=== PATIENT | male | born 1980 | race Hispanic/Latino ===

== ENCOUNTER 2017-06-21 11:54 | Emergency (ER) | payer MEDICARE ==
--- NOTE | 2017-06-21 16:28 | Emergency Department Report ---
ED Male HPI - General Chief complaint: Skin Rash Stated complaint: CYST/POSS FUNGAL INFECTION Time Seen by Provider: 06/21/17 16:03 Source: patient Mode of arrival: Ambulatory Limitations: No Limitations - History of Present Illness Initial comments: 36-year-old male past medical history diverticulitis, schizoaffective disorder presents with complaint of 3 weeks of lesion and right inner groin region with weeping skin as well as slight discomfort right testicle. Denies increased urinary frequency dysuria or flank pain. Denies fevers or chills. Denies abdominal pain. Denies any difficulty urinating. Denies foul-smelling urine. Patient states he is not currently sexually active in 6+ months MD Complaint: groin pain, other Location: right testicle Radiation: none Severity: mild Severity scale (0 -10): 4 Quality: dull Consistency: intermittent discharge - Related Data Previous Rx's Medication Instructions Recorded Last Taken Type Cephalexin [Keflex] 500 mg PO Q12HR #14 cap 06/21/17 Unknown Rx Ibuprofen [Motrin] 800 mg PO Q8HR PRN #30 tablet 06/21/17 Unknown Rx Sulfamethoxazole/Trimethoprim 1 each PO BID #14 tablet 06/21/17 Unknown Rx [Bactrim Ds Tablet] Allergies Allergy/AdvReac Type Severity Reaction Status Date / Time No Known Allergies Allergy Unverified 06/21/17 12:00 ED Review of Systems ROS: Stated complaint: CYST/POSS FUNGAL INFECTION Other details as noted in HPI Constitutional: denies: chills, fever Eyes: denies: eye pain, eye discharge, vision change ENT: denies: ear pain, throat pain Respiratory: denies: cough, shortness of breath, wheezing Cardiovascular: denies: chest pain, palpitations Endocrine: no symptoms reported Gastrointestinal: denies: abdominal pain, nausea, diarrhea Genitourinary: as per HPI (3 weeks of discomfort near his scrotum). denies: urgency, dysuria Musculoskeletal: denies: back pain, joint swelling, arthralgia Skin: denies: rash, lesions Neurological: denies: headache, weakness, paresthesias Psychiatric: denies: anxiety, depression Hematological/Lymphatic: denies: easy bleeding, easy bruising ED Past Medical Hx - Past Medical History Hx Psychiatric Treatment: Yes (schzio affect disorder) Additional medical history: diverticulitis - Surgical History Additional Surgical History: heel repair, tonselectomy - Social History Smoking Status: Current Every Day Smoker - Medications Home Medications: Home Medications Medication Instructions Recorded Confirmed Last Taken Type Cephalexin [Keflex] 500 mg PO Q12HR #14 cap 06/21/17 Unknown Rx Ibuprofen [Motrin] 800 mg PO Q8HR PRN #30 tablet 06/21/17 Unknown Rx Sulfamethoxazole/Trimethoprim 1 each PO BID #14 tablet 06/21/17 Unknown Rx [Bactrim Ds Tablet] ED Physical Exam - General Limitations: No Limitations General appearance: alert, in no apparent distress - Head Head exam: Present: atraumatic, normocephalic - Eye Eye exam: Present: normal appearance, PERRL, EOMI - ENT ENT exam: Present: mucous membranes moist - Neck Neck exam: Present: normal inspection - Respiratory Respiratory exam: Present: normal lung sounds bilaterally. Absent: respiratory distress - Cardiovascular Cardiovascular Exam: Present: regular rate, normal rhythm. Absent: systolic murmur, diastolic murmur, rubs, gallop - GI/Abdominal GI/Abdominal exam: Present: soft, normal bowel sounds - Rectal Rectal exam: Present: deferred - exam: Present: normal inspection, other (small less than 1 cm palbale cystic structure adjacent to groin, no fluctuance, jefferson amoutn of drianage, no crepis in perineal region one xam, no clinical signs of fourneires gangrene) - Extremities Exam Extremities exam: Present: normal inspection - Back Exam Back exam: Present: normal inspection - Neurological Exam Neurological exam: Present: alert, oriented X3 - Psychiatric Psychiatric exam: Present: normal affect, normal mood - Skin Skin exam: Present: warm, dry, intact, normal color. Absent: rash ED Course Vital Signs 06/21/17 12:00 Temperature 98 F Pulse Rate 107 H Respiratory 18 Rate Blood Pressure 143/89 O2 Sat by Pulse 99 Oximetry ED Medical Decision Making - Medical Decision Making A/P: Tinea cruris, small draining groin cyst/abscess 1-on physical exam no clinical signs indicative of large groin abscess and or Conor's gangrene. Cystic structure is less than 1 cm in size and draining. Urinalysis unremarkable. Ultrasound is unremarkable no significant groin abscess or cyst. Will treat based on clinical symptoms 2-Keflex and Bactrim twice a day 7 days. Motrin when necessary 3-Tinactin antifungal spray 4-sits baths 5-follow up with primary care doctor Critical care attestation.: If time is entered above; I have spent that time in minutes in the direct care of this critically ill patient, excluding procedure time. ED Disposition Clinical Impression: Tinea cruris, Groin cyst Disposition: TO HOME OR SELFCARE Is pt being admited?: No Does the pt Need Aspirin: No Condition: Stable Instructions: Jock Itch (ED), Abscess (ED), Sitz Bath (GEN) Prescriptions: Cephalexin [Keflex] 500 mg PO Q12HR #14 cap Ibuprofen [Motrin] 800 mg PO Q8HR PRN #30 tablet PRN Reason: Pain Sulfamethoxazole/Trimethoprim [Bactrim Ds Tablet] 1 each PO BID #14 tablet Referrals: [facility] [place] [Outside] - 3-5 Days [facility] [Outside] - 3-5 Days Forms: Accompanied Note, Work/School Release Form(ED) Time of Disposition: 18:40
[2017-06-21 16:57] LABS: Bilirubin,Urine NEG (Negative); Blood,Urine NEG (Negative); Ketones,Urine NEG (Negative); Leukocyte Esterase,Urine NEG (Negative); Mucus,Urine FEW /HPF; Nitrite,Urine NEG (Negative); Protein,Urine <15 mg/dL mg/dL (Negative)
--- NOTE | 2017-06-21 18:21 | Ultrasound Report ---
FINAL REPORT PROCEDURE: US TESTICULAR DOPPLER COMP TECHNIQUE: Real-time brush-scale and color flow Doppler sonography in multiple planes of the scrotum, testicles, and epididymes was performed. Velocity spectral waveform analysis Doppler imaging of the arterial inflow and venous outflow of the testicles was performed with image documentation. CPT 25884 [place] [address]86 HISTORY: pain underneath right scrotum COMPARISON: No prior studies are available for comparison. FINDINGS: RIGHT TESTICLE: Size: 4.5 x 1.3 x 3.1 cm . Appearance: There is a 5 x 4 x 4 millimeter hypoechoic focus in the superior testis. Numerous diffuse punctate calculi are present. Arterial blood flow: Normal spectral waveforms, flow velocities and color flow images.. Venous blood flow: Normal spectral waveforms and color flow images. Right epididymis: Normal size and echotexture . Hydrocele: None . Front End Assistant reports that no focal lesion is seen in the area of concern indicated by the patient during the scan. LEFT TESTICLE Size: 3.5 x 1.9 x 3.4 cm . Appearance: Numerous diffuse punctate calculi are present. There is a 1 centimeter extratesticular cystic structure present in the left scrotum. Arterial blood flow: Normal spectral waveforms, flow velocities and color flow images.. Venous blood flow: Normal spectral waveforms and color flow images. Left epididymis: Normal size and echotexture . Hydrocele: Small. IMPRESSION: Small hypoechoic focus in the superior right testis is difficult to characterize due to its small size and may be a cyst or possibly a hypoechoic solid lesion. No associated vascularity is seen. Recommend short-term sonographic follow-up and urologic consultation to exclude a solid lesion. Testicular microlithiasis bilaterally.
[2017-06-21 18:53] VITALS: BP 139/81
== END 2017-06-21 18:45 | disposition home or self-care (01) ==
LOC: ED 11:54
DX: B35.6 Tinea cruris (principal); R19.09 Other intra-abdominal and pelvic swelling, mass and lump; F20.9 Schizophrenia, unspecified; K57.92 Diverticulitis of intestine, part unspecified, without perforation or abscess without bleeding; F17.200 Nicotine dependence, unspecified, uncomplicated
CPT/HCPCS: 81001; 93975